=== PATIENT | male | born 1950 ===

== ENCOUNTER 2017-01-17 06:45 | Inpatient (IN) | payer BC, MEDICARE ==
[~2017-01-17] VITALS: Ht 167.6 cm; Wt 88.5 kg
[2017-05-03] MEDS ORDERED: MULTIVITAMINS1 EAC7 PO (10:19)
[2017-05-03] MEDS ORDERED: IRON325 M1 PO (10:19)
[2017-05-03] MEDS ORDERED: VITAMIN C500 M4 PO (10:19)
--- NOTE | 2017-05-03 16:20 | NUR ---
[facility] PT CARE NOTE THIS IS A 66 YEAR OLD MALE PT THAT IS SCHEDULED FOR A LEFT TOTAL KNEE REPLACEMENT ON 05/09/[address] DESIREE WHITE. 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 STATES HE HAS A TUB/SHOWRE COMBINATION-WE TALKED ABOUT GETTING A SHOWER CHAIR OR BENCH, AND A HAND HELD SHOWERHEAD. PT STATES HE WILL BE NEEDING A FRONT WHEELED WALKER WHILE HE IS HERE. ALSO WOULD LIKE TO DO HIS OP PT AT [facility] IN [place]. PTS PCP IS DR ROSE IN [place] AND HIS PHARMACY IS [facility] IN [place]. PT DENIES FURTHER QUESTIONS, CONCERNS, ISSUES OR NEEDS AT THIS TIME. WILL FOLLOW HIM WHILE HE IS IN THE HOSPITAL, [facility]
--- NOTE | 2017-05-09 06:46 | NUR ---
LAB NOT PUT IN STAT CALLED LAB THEY WILL CHG STATED I DONT HAVE TO CHG.
--- NOTE | 2017-05-09 09:39 | NUR ---
05/09/17 0939 Jada Ayers 0928 RESP EVEN AND UNLABORED. ORAL AIRWAY IN PLACE. ESTIMATOR PRINTING AT BEDSIDE DOING A BLOCK.
--- NOTE | 2017-05-09 11:16 | NUR ---
PT TO FLOOR VIA STRETCHER WITH WARE SERVER. PT URINATED IN URINAL WO DIFF. RATES PAIN 8\10. AFTER LOOKING AT [facility] CALLED DR WHITE FOR IV PAIN MEDS, HE SAID TO CALL TOSIN. CALLED AND LEFT MESSAGE FOR HER TO CALL BACK.
--- NOTE | 2017-05-09 11:32 | NUR ---
HOT ROLLER TOSIN IN TO DO ANOTHER BLOCK IN KNEE. EXPLAINED TO PT AND . VS STABLE AND BP HAS COME DOWN FROM PACU.
--- NOTE | 2017-05-09 12:00 | NUR ---
PT ROLLED AND BEDDING CHANGED UNDERNEATH IT WAS DAMP. PT TOLERATED WELL.
--- NOTE | 2017-05-09 12:44 | NUR ---
PT RESTING WITH EYES CLOSED. IN ROOM. CRYO CUFF AND IVF WNL.
--- NOTE | 2017-05-09 12:52 | NUR ---
REFILLED PATIENT CRYO.
--- NOTE | 2017-05-09 14:41 | NUR ---
PT PLACED ON 1L OXYGEN N.C. AFTER WORKING WITH PHYSICAL THERAPY. PATIENT WAS 89-90% ON ROOM AIR 97% ON 1L. PT REPORTS NO PAIN. I.V. SITE RE-DRESSED IT WAS NO PATENT, HUB RE-POSITIONED I.V. FLUSHING WELL NOW. PT REPORTS NO PAIN
--- NOTE | 2017-05-09 14:59 | NUR ---
ADMINISTERED AFTERNOON MEDS. RATES PAIN 05/04. DRESSING CDI. DENIES FURTHER CONCERNS.
--- NOTE | 2017-05-09 15:16 | NUR ---
TALKED TO TRINI REGARDING FWW AND SHOWER CHAIR. EXPLAINED TO FAMILY THE INSURANCE WILL NOT COVER THE SHOWER CHAIR BUT THEY COULD BUY ONE AT [facility]. THE WALKER WILL BE DELIVERED TO THE HOSPITAL.
--- NOTE | 2017-05-09 17:27 | NUR ---
PT TO FLOOR THIS AFTERNOON. PT WORKED WITH PHYS. THER. X2. DOES WELL WITH FWW AND 1 PERSON ASSIST. MOSTLY [place] SPEAKING BUT SPEAKS SOME [place]. HAD A 3RD BLOCK IN ROOM AND NOW RATES PAIN 1\10. DARRIN LEAHY RECOMMENDS GIVING PAIN MEDICATION WITH THE BLOCK FOR BEST COVERAGE. DRESSING CDI.
--- NOTE | 2017-05-09 18:39 | NUR ---
PT STOOD AT BEDSIDE WITH FWW WHILE BEDDING AND UNDERWEAR CHANGED. TOLERATED WELL. ADMINISTERED 1 OXY FOR STEADY PAIN CONTROL. RATES 05/04
--- NOTE | 2017-05-09 19:15 | NUR ---
RECIEVED BEDSIDE REPORT FROM DAYSHIFT RN. PT RATES PAIN AT 1/10, STATES "ITS NOT THERE," IN REGARDS TO PAIN. MANY FAMILY MEMBER IN ROOM. PT SITTING UP IN BED. NO APPARENT DISTRESS. CALL LIGHT IN REACH. NO FURTHER NEEDS.
--- NOTE | 2017-05-09 22:03 | NUR ---
PT LAYING IN BED, VISITING WITH FAMILY. AND GRANDAUGHTER STAYING THE NIGHT. PT ALERT AND ORIENTED X4, PLEASENT DEMEANOR. SPEAKS BHUTANESE WELL, AND FAMILY TRANSLATES ALONG WITH RN ALSO. PT RATES PAIN AT 1/10, GAVE SCHEDULED PAIN MEDICATION. EDUCATED PT ON PAIN MANAGMENT, PT VERBALIZED UNDERSTANDING. DENIES NAUSEA. DENIES PRURITIS. HEEL PROTECTORS PLACED ON PT. TEDS, SCD'S, COLD CRYO CUFF IN PLACE. GAVE INCENTIVE SPIROMETER AND GAVE EDUCATION ON USE, PT DEMONSTRATED USE. KNEES LOCKED FLAT ON BED. GAVE FRESH WATER. PT SL. NO FURTHER NEEDS AT THIS TIME. CALL LIGHT IN REACH.
--- NOTE | 2017-05-10 00:22 | NUR ---
PT APPEARS TO BE SLEEPING RR WNL AND UNLABORED. LIGHTS AND TV REMAIN OFF IN ROOM. ON SOFA, DAUGHTER IN CHAIR, BOTH APPEAR ASLEEP ALSO.
--- NOTE | 2017-05-10 02:17 | NUR ---
REFILLED CRYO CUFF.
--- NOTE | 2017-05-10 02:20 | NUR ---
PT WOKE EASILY TO RN AND MAXILLOFACIAL PROSTHETICS DENTIST IN ROOM. CONTINUES TO RATE PAIN AT 1/10. DENIES FURTHER NEEDS. CALL LIGHT IN REACH.
--- NOTE | 2017-05-10 04:34 | NUR ---
PT RESTING QUIETLY.
--- NOTE | 2017-05-10 05:43 | NUR ---
PT HAD UNEVENTFUL NIGHT. ALERT AND ORIENTED X4. PLEASENT DEMEANOR. FAMILY STAYED OVERNIGHT. PAIN WELL CONTROLLED WITH SCHEDULED PAIN MEDICATION, PT EDUCATED ON PAIN MANAGMENT AND THE IMPORTANENCE OF NOTIFYING RN OF ONSET OF PAIN. NO NAUSEA. NO PRURITIS. DRESSING TO LEFT KNEE IS CLEAN DRY AND INTACT, NO SHADOWING. ALL DR WHITE ORDERS IN PLACE. INCENTIVE SPRIOMETER AT BEDSIDE, PT DEMONSTRATED CORRECT USE LAST NIGHT. PT USES CALL LIGHT APPROPRIATLY.
--- NOTE | 2017-05-10 06:32 | NUR ---
PT LAYING IN BED AWAKE WHEN ENTERING ROOM. PT RATES PAIN AT 1/10 STILL, GAVE SCHEDULED TYLENOL FOR PAIN. PT IN NO DISTRESS AT THIS TIME. REFILLED CRYO CUFF WITH ICE AND GAVE FRESH ICE WATER. NO FURTHER NEEDS. CALL LIGHT IN REACH.
--- NOTE | 2017-05-10 07:27 | NUR ---
REPORT RECIEVED FROM PASTOR RIVAS. PT AWAKE WITH FAMILY IN ROOM. STATES HE SLEPT WELL AND DENIES PAIN.
--- NOTE | 2017-05-10 07:30 | NUR ---
UPDATED WB. EMPTYED URNIAL. REFILLED CRYO.
--- NOTE | 2017-05-10 08:04 | OR ---
[facility] [address] [place] [address], [place] [address] Signed DATE OF OPERATION: 05/09/2017 SURGEON: Junior Guerrero MD PREOPERATIVE DIAGNOSIS: Degenerative joint disease, left knee. POSTOPERATIVE DIAGNOSIS: Degenerative joint disease, left knee. PROCEDURE PERFORMED: Left total knee arthroplasty with computer navigation. RN ENTEROSTOMAL: VEGA Pozo was present and critical for positioning, retraction, and wound closure and dressing application. ANESTHESIA: General. BLOOD LOSS: Minimal. TOURNIQUET TIME: 64 minutes. IMPLANTS: Yary Triathlon size 4 with 11 mm insert and a 32 mm patella. BRIEF HISTORY: Brandin is a 66-year-old gentleman with pain in his knee. He had undergone nonoperative treatment including bracing, injections, and anti-inflammatories without substantial relief. Risks, benefits, and alternatives were discussed with him of knee replacement. He wished to proceed. DESCRIPTION OF PROCEDURE: Once consent was obtained, he was taken to the operating room. After adequate anesthesia, he was placed on operating room table. After par conference, the leg was Electronically Signed By: JUNIOR GUERRERO MD 05/10/17 0804 PATIENT NAME: BRANDIN LIGHT OPERATIVE REPORT DATE OF : 52 PHYSICIAN: JUNIOR GUERRERO MD REPORT #: [id number] REPORT IS CONFIDENTIAL AND NOT TO BE RELEASED WITHOUT AUTHORIZATION [facility] [address] [facility] [address] [place], [place] [address] Signed placed in well-padded proximal thigh tourniquet placed on the hip bump. The leg was then prepped and draped in the standard sterile fashion. Leg was exsanguinated using Esmarch bandage. Tourniquet inflated to 250 mmHg. Standard anterior approach through curved incision was taken through skin and subcutaneous tissue. Median parapatellar arthrotomy was performed. The infrapatellar fat pad was excised and the MCL was elevated to sleeve around the posterior medial corner. Anterior horns of the menisci were transected at least laterally. There was none medially. The ACL was transected. PCL was found to be intact. Knee was then flexed. Navigation guide was pinned to the femur to the distal femur and the femur was registered using the computer. The distal cutting block was then pinned in neutral alignment and the distal femoral cut was made. The distal femur was sized to a 4 before. The cutting block was then pinned and aligned with epicondylar axis. The anterior-posterior chamfer cuts were made. The osteophytes were removed. Attention was then turned to the proximal tibia. The navigation guide was pinned to the proximal tibia and tibia was registered with the computer. The cutting block was then pinned in neutral alignment and the tibial cut was made with care taken to protect the patellar tendon and MCL. The bone was excised. Any meniscal remnants removed. Posterior osteophytes removed off the femur. Posterior release performed. Flexion-extension gaps were sized and found to be symmetric at 11 mm. The trials were then positioned. Knee was taken through range of motion and found to be stable and alignment good. The patella cut sized and drilled for 32 patella. The drill holes in the distal femur were made. The trials were removed. The proximal tibia was finished using the keel punch. The bone surfaces were pulse lavaged, packed with a dry Ray-Nannette. Cement was mixed and reached proper consistency and was placed on all implants and bone surfaces. The tibia was impacted into position first followed by the polyethylene. Any remaining cement was removed. The femur was impacted and again all excess cement was removed. The knee was extended and nicely loaded. The patella was clamped and the remaining cement was removed. The cement was allowed to harden for 14 minutes. The knee was then flexed and the remaining cement was removed using an osteotome. The knee was pulse lavaged at intervals throughout the procedure. A total of 3 L antibiotic irrigation was used. The periarticular soft tissues were injected with 100 mL of ropivacaine and Toradol mixture. The arthrotomy was then closed using #2 Stratafix, #1 Stratafix for the subcutaneous tissue and argent[place] for the skin. The knee was dressed with Mepilex Ag dressing, ABD, and Willie wrap. The patient tolerated the procedure well. All sponge, needle, and instrument counts were correct. Junior Guerrero MD BA/MODL Electronically Signed By: JUNIOR GUERRERO MD 05/10/17 0804 PATIENT NAME: BRANDIN LIGHT OPERATIVE REPORT DATE OF : 52 PHYSICIAN: JUNIOR GUERRERO MD REPORT #: [id number] REPORT IS CONFIDENTIAL AND NOT TO BE RELEASED WITHOUT AUTHORIZATION [address] [address] Signed /[id number] Electronically Signed By: JUNIOR GUERRERO MD 05/10/17 0804 PATIENT NAME: BRANDIN LIGHT OPERATIVE REPORT DATE OF : 52 PHYSICIAN: JUNIOR GUERRERO MD REPORT #: [id number] REPORT IS CONFIDENTIAL AND NOT TO BE RELEASED WITHOUT AUTHORIZATION
--- NOTE | 2017-05-10 09:01 | NUR ---
PT SITTING IN BED. FINISHED BREAKFAST. AM MEDS GIVEN, SL, ASSESSMENT DONE, CRYO CUFF IN PLACE. GIVEN WIPES FOR BED BATH. FAMILY IN ROOM. PT DENIES PAIN AT THIS TIME.
--- NOTE | 2017-05-10 09:30 | NUR ---
PT IN CHAIR. FRESH ICE WATER. CHANGED LINENS. VITALS DONE.
--- NOTE | 2017-05-10 09:50 | NUR ---
TOOK VITALS. PT IS GOING TO GIVE HIM A BED BATH
--- NOTE | 2017-05-10 10:37 | NUR ---
MED REC COMPLETE, PATIENT ONLY TAKES VITAMINS.
--- NOTE | 2017-05-10 11:12 | NUR ---
PT WALKED WITH PHYS. THER. IN ERNST. APPEARED TO BE TOLERATING WELL. WALKING WITH THEM
--- NOTE | 2017-05-10 11:56 | NUR ---
PT IN BED AFTER WORKING WITH PHYS. THER. STATES HE HAD MINIMAL PAIN OF 1\10. MULTIPLE FAMILY MEMBERS IN ROOM. DENIES CONCERNS ATT.
--- NOTE | 2017-05-10 12:16 | NUR ---
FILLED CRYO CUFF. EMPTED URNIL. SET UP FOR LUNCH
--- NOTE | 2017-05-10 13:00 | NUR ---
FAXED CHART NOTES TO [facility] TO GET THE PT WALKER. TALKED TO ASA IN THE OFFICE. CHART NOTES INCLUDED FACESHEET, ORDER, H AND P, OP NOTE, PROG NOTES, PT EV AND NOTE. RECIEVED FAX CONFIRMATION OF THIS.
--- NOTE | 2017-05-10 14:30 | NUR ---
ADMINSTERED SCHED MEDS. PT RATES PAIN 2\10. WORKED WITH PHYS. THER. AND IS NOW A LITTLE MORE SORE. FAMILY IN ROOM. PT DENIES NEEDS ATT.
--- NOTE | 2017-05-10 14:40 | NUR ---
VITALS DONE. CRYO REFILL
--- NOTE | 2017-05-10 16:54 | NUR ---
WAS INFORMED THAT THE PT WALKER ARRIVED.
--- NOTE | 2017-05-10 16:56 | NUR ---
PT AMBULATED TO BATHROOM WITH FWW, STANDBY ASSIST. TOLERATED WELL. BED LINENS CHANGED. IV FLUSHED WITH 5ML NS
--- NOTE | 2017-05-10 18:08 | NUR ---
re fill cryo and vitals done
--- NOTE | 2017-05-10 21:22 | NUR ---
PT SITTING UP IN BED, VISITING WITH FAMILY. ALERT AND ORIENTED X4, VERY PLEASENT. DRESSING IS CLEAN DRY AND INTACT. ALL DR WHITE ORDERS IN PLACE. PT APPEARS TO BE DOING WELL, NO DISTRESS AT THIS TIME. RATED PAIN A 1/10 AT SHIFT CHANGE, NOW RATING IT A "1 OR A 2 OUT OF 10," GAVE SCHEDULED AND PRN PAIN MEDICATION. FRESH ICE IN CRYO CUFF. FRESH ICE WATER AT BEDSIDE. CALL LIGHT IN REACH. PT AND FAMILY HAVE NO NEEDS AT THIS TIME. CALL LIGHT IN REACH.
--- NOTE | 2017-05-10 22:44 | NUR ---
PT APPEARS TO BE SLEEPING. LIGHTS AND TV OFF IN ROOM.
--- NOTE | 2017-05-10 23:57 | NUR ---
CRYO CUFF REFILLED.
--- NOTE | 2017-05-11 01:32 | NUR ---
PT APPEARS TO BE SLEEPING. RR WNL AND UNLABORED. DAUGHTER AND IN ROOM. LIGHTS AND TV OFF IN ROOM.
--- NOTE | 2017-05-11 04:15 | NUR ---
PT CONTINUES TO SLEEP WELL TONIGHT. APPEARS ASLEEP AT THE MOMENT.
--- NOTE | 2017-05-11 05:25 | NUR ---
CRYO CUFF REFILLED.
--- NOTE | 2017-05-11 05:46 | NUR ---
PT UP TO BATHROOM, VOIDED AND HAD A BM. PT TOLERATED AMBULATING WELL WITH MINIMAL ASSIST AND FWW. MADE BED WITH NEW LINENS. PT BACK IN BED. COMPLAINED OF 2/10 PAIN, GAVE SCHEDULED TYLENOL AND PRN OXYCODONE FOR PAIN. PT HAS NO FURTHER NEEDS.
--- NOTE | 2017-05-11 06:08 | NUR ---
PT HAD AN UNEVENTFUL NIGHT. SLEPT MAJORITY OF SHIFT. AMBULATING WELL WITH MINIMAL ASSIST AND FWW. BM THIS MORNING. DRESSING IS CLEAN DRY AND INTACT. PAIN WELL CONTROLLED WITH SCHEDULED AND PRN PAIN MEDICATIONS. ALL DR WHITE ORDERS IN PLACE. ALERT AND ORIENTED X4, PLEASENT DEMEANOR. FAMILY AT BEDSIDE. USES CALL LIGHT APPROPRIATLY.
--- NOTE | 2017-05-11 07:21 | NUR ---
REPORT RECIEVED FROM PASTOR RIVAS. PT SLEEPING IN BED BUT AWOKEN FOR REPORT. DENIES CONCERNS. FAMILY IN ROOM.
[2017-05-11] MEDS ORDERED: DICLOFENAC SODI75 MG PO (08:13)
[2017-05-11] MEDS ORDERED: XARELTO10 MG PO (08:13)
[2017-05-11] MEDS ORDERED: OXYCODONE HCL5 MG PO (08:13)
[2017-05-11] MEDS ORDERED: PANTOPRAZOLE SO40 MG PO (08:14)
[2017-05-11] MEDS ORDERED: MIRALAX17 GM PO (08:14)
[2017-05-11] MEDS ORDERED: MAPAP500 M1 PO (08:14)
--- NOTE | 2017-05-11 09:43 | NUR ---
PT AND FAMILY GIVEN DISCHARGE INSTRUCTION. ALL VERBALIZED UNDERSTANDING. ALL QUESTIONS ANSWERED. WILL ADMINISTER PRN PAIN MED BEFORE DC. INCISION WELL APPROX. NO REDNESS NOTED. PAIN RATED 2\10. WORKED WITH BINDERY SUPERVISOR AND SHE EXPLAINED HOW TO NAVIGATE THE STAIRS. IV REMOVED WNL.
--- NOTE | 2017-05-11 10:57 | NUR ---
ASSISTED PT WITH GETTING DRESSED. RETURNED BELONGINGS. ASSISTED PT AND FAMILY OUT TO CAR.
--- NOTE | 2017-05-12 15:35 | NUR ---
RECIEVED A PHONE CALL FROM ED AT DR WHITE OFFICE, STATING THAT THE PT IS GOING TO BE HAVING PT AT [facility]. PT AND FAMILY HAD TOLD ME [facility] [place], SO I CALLED THE DAUGHTER GIANFRANCO AND SHE SAID IT DEFINETLY WAS [facility]. I CALLED [facility] AND TOLD THEM I WAS SENDING OVER ORDERS FOR HIS PT. FAXED CHART NOTES INCLUDING FACESHEET, H AND P, ORDERS, OR NOTE, PROG NOTES, PT EVAL AND NOTES.
--- NOTE | 2017-05-13 10:34 | NUR ---
AFTER MULTIPLE ATTEMPTS AT FAXING ORDERS AND CHART NOTES TO [facility], I CALLED AND GOT AN EMAIL OF ONE OF THE EMPLOYEES AND EMAILED THE CHART NOTES TO HER. @ [email or web address]. SPOKE WITH THEM AND THEY RECIEVED THIS EMAIL.
--- NOTE | 2017-05-13 13:50 | DS ---
[facility] [address] [place], [place] [address] Signed ADMISSION DATE: 05/09/2017 DISCHARGE DATE: 05/11/2017 ADMISSION DIAGNOSIS: Degenerative joint disease, left knee. DISCHARGE DIAGNOSIS: Degenerative joint disease, left knee. PROCEDURE PERFORMED: Left total knee arthroplasty. BRIEF HISTORY: Brandin is a 66-year-old gentleman with progressive worsening of osteoarthritis in his knee. He did not have a good response to nonoperative treatment. He wished to proceed with arthroplasty. Risks, benefits, and alternatives were discussed at length and he understood and wished to proceed. Once consent was obtained, he was taken to the operating room, underwent the above-named procedure, he tolerated it well, was taken to the recovery room and subsequently to the orthopedic floor. He was placed on normal protocol for physical therapy, antiembolic therapy with Xarelto 10 mg p.o. daily as well as SCDs and TEDS. Oral pain medication of oxycodone, Tylenol, and diclofenac reinstituted and he did quite well with these. His blood pressure and pulse remained stable throughout. His wound was clean and dry throughout. He did see physical therapy, he was able to ambulate up and down the stairs and down the hallway by the day of discharge. He was felt to be stable for discharge with outpatient physical therapy. If he has any problems, he will notify me immediately. Otherwise, I will see him back in 10 days. Junior Guerrero MD BA/MAULIK /[id number] Electronically Signed By: JUNIOR GUERRERO MD 05/13/17 1350 PATIENT NAME: KECIA LIGHTO DISCHARGE SUMMARY DATE OF : 52 PHYSICIAN: JUNIOR GUERRERO MD REPORT #: [id number] REPORT IS CONFIDENTIAL AND NOT TO BE RELEASED WITHOUT AUTHORIZATION
== END 2017-05-11 10:40 | disposition home or self-care (01) | DRG 470 ==
LOC: MS 06:45 → DSVR 05-09 05:35 → MS 05-09 06:45
PROVIDERS: ADMIT Specialist
PROC: 0SRD0J9 Replacement of Left Knee Joint with Synthetic Substitute, Cemented, Open Approach (ICD-10-PCS; principal; 2017-05-09 06:45)
DX: M17.12 Unilateral primary osteoarthritis, left knee (principal); Z96.651 Presence of right artificial knee joint; Z87.891 Personal history of nicotine dependence
CPT/HCPCS: 01402; 36415; 64445; 64447; 64450; 76942; 80048; 80053; 85025; 94762; 97110; 97116; 97161; C1713; C1776; G8978; G8979; G8980; J0330; J0690; J1100; J1885; J2250; J2274; J2405; J2704; J2795; J3010; J7120